=== PATIENT | male | born 1945 | race Caucasian/White ===

== ENCOUNTER 2016-09-03 11:12 | Day surgery (SDC) | payer MEDICARE ==
[~2016-09-03 11:12] MED LIST: CEFAZOLIN SODIUM 2 GRAM PREMIX 100 ML IV ONE; IV START KIT ONE; LACTATED RINGERS 1,000 ML ONE
[2016-09-03] MEDS ORDERED: BUPIVACAINE 0.5% W/EPI SDV 30 ML VIAL ONE (11:18)
[2016-09-03] MEDS ORDERED: CEFAZOLIN SODIUM 2 GRAM PREMIX 100 ML IV PRN (11:30)
[2016-09-03] MEDS ORDERED: CEFAZOLIN SODIUM 1,000 MG VIAL ONE (11:54)
[2016-09-03] MEDS ORDERED: SODIUM CHLORIDE 0.9% FLUSH 10 ML ONE ×2 (11:54→16:17)
[2016-09-03] MEDS ORDERED: FENTANYL 100 MCG/2 ML VIAL ONE (12:11)
[2016-09-03] MEDS ORDERED: PROPOFOL 20 ML IV ONE (12:41)
[2016-09-03] MEDS ORDERED: METOCLOPRAMIDE HCL 5 MG/ML 2ML VIAL ONE (12:41)
[2016-09-03] MEDS ORDERED: ATROPINE SULFATE 0.4 MG/1 ML VIAL IV PRN (12:48)
[2016-09-03] MEDS ORDERED: NALOXONE HCL 0.4 MG/ML VIAL IV PRN (12:48)
[2016-09-03] MEDS ORDERED: PROMETHAZINE HCL 25 MG/ML VIAL IM PRN (12:48)
[2016-09-03] MEDS ORDERED: ONDANSETRON 4 MG/2ML 2 ML VIAL IV PRN ×2 (12:48→14:24)
[2016-09-03] MEDS ORDERED: MEPERIDINE 25 MG/ML SYRINGE IV PRN (12:48)
[2016-09-03] MEDS ORDERED: HYDRALAZINE HCL 20 MG/1 ML VIAL IV PRN (12:48)
[2016-09-03] MEDS ORDERED: MORPHINE SULFATE 10 MG/ML SYRINGE ONE (12:58)
[2016-09-03] MEDS ORDERED: LACTATED RINGERS 1,000 ML IV SCH (13:00)
[2016-09-03] MEDS ORDERED: MORPHINE SULFATE 4 MG/ML SYRINGE ONE ×2 (13:53→14:03)
[2016-09-03] MEDS: MORPHINE SULFATE 4 MG/ML SYRINGE IV PRN ×4 (13:55→14:10)
[2016-09-03] MEDS ORDERED: KETOROLAC TROMETHAMINE 30 MG/ML 1 ML VIAL IV PRN (14:24)
[2016-09-03] MEDS ORDERED: MORPHINE SULFATE 2 MG/ML SYRINGE IV PRN (14:24)
[2016-09-03] MEDS ORDERED: OXYCODONE/ACETAMINOPHEN 5/325 MG TABLET PO PRN (14:24)
[2016-09-03] MEDS ORDERED: KETOROLAC TROMETHAMINE 30 MG/ML 1 ML VIAL ONE (14:54)
[2016-09-03] MEDS ORDERED: GLYCOPYRROLATE 0.2 MG/ML 1ML VIAL ONE (14:59)
[2016-09-03] MEDS ORDERED: OXYCODONE/ACETAMINOPHEN 5/325 MG TABLET ONE (16:15)
[2016-09-03] MEDS ORDERED: ONDANSETRON 4 MG/2ML 2 ML VIAL ONE (16:15)
--- NOTE | 2016-09-03 16:24 | OP ---
OBDULIA STRICKLAND [id number] DATE OF OPERATION: September 03, 2016 PREOPERATIVE DIAGNOSIS: Subcutaneous mass times two upper abdomen, umbilical hernia. POSTOPERATIVE DIAGNOSIS: Subcutaneous mass times two upper abdomen, umbilical hernia. PROCEDURE: 1. EXCISION OF SUBCUTANEOUS MASS TIMES TWO UPPER ABDOMEN 2. UMBILICAL HERNIA REPAIR WITH MEDIUM VENTRALEX MESH PATCH. SURGEON: Darryl Zhao M.D. METAL TRIMMER: Meliza Govea ANESTHESIA: LMA general anesthesia by Sarah Zelaya C.R.N.A. INDICATIONS: This is a 70-year-old male who presents for elective repair of an umbilical hernia. He also has two subcutaneous masses in the epigastric area that are tender. DESCRIPTION: With informed consent he was taken to the operating room where he was laid supine on the operating room table. General LMA anesthesia was administered. The abdomen was prepped and draped in the usual fashion. Local anesthetic was administered below the umbilicus. Incision was made. We dissected around a hernia sac. We it from the umbilical skin with Metzenbaum scissors. Hernia sac was excised at the level of the fascia using electrocautery. From within, I could not feel a fascial defect in the epigastric area. The subcutaneous masses were in the area of the falciform ligament but no clear defect was palpable. I decided actually to excise the subcutaneous masses in the epigastric area while I had the umbilical incision open. Local anesthetic was administered around the subcutaneous masses. A transverse incision was made. We dissected out two separate subcutaneous lipomatous type masses. The larger one was more cephalad and to the left and measured 6 cm in size. It was able to be dissected free mostly with blunt dissection. A more firm lesion lower on the right was excised with blunt dissection. It measured 2.5 cm. 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 No fascial defects were identified. The upper abdominal incision was closed in layers with deeper #3-0 Vicryl and then a running subcuticular #4-0 Monocryl. In the umbilical defect, I placed a medium Ventralex mesh patch. Care was taken to insure that there were no visceral structures between the mesh and the abdominal wall. This was secured circumferentially with #2-0 Vicryl. The tails were cut away. The wound was irrigated. We appeared to have adequate hemostasis. Umbilical skin was sutured down near the fascia with some #3-0 Vicryl. Subcutaneous tissues brought together with #3-0 Vicryl. The skin was closed with a running subcuticular #4-0 Monocryl. Mastisol and Steri-Strips were placed to both incisions. Sterile dressings were applied. An abdominal binder was applied. He tolerated the procedure and was taken to the recovery room in stable condition. A note was made that needle, instrument and lap counts were reported as correct at the time of closure. Cc: Derian De Oliveira M.D.
--- NOTE | 2016-09-06 14:10 | SURGPATH ---
[facility] [address] [place] [id number] Patient Name: OBDULIA STRICKLAND MR#: [id number] : 1945 Gender: M Specimen #: [id number] Collected: 09/03/2016 Received: 09/05/2016 Reported: 09/06/2016 Submitting Phys: BRIANNA WALLS Copy To Phys: [facility]AE [facility] Clinical History / Pre-Operative Diagnosis: ABDOMINAL MASSES, UMBILICAL HERNIA Specimen Source / Surgical Procedure Performed: UPPER ABDOMINAL MASSES (SUBCUTANEOUS) Interpretation: SOFT TISSUE, UPPER ABDOMINAL MASSES, EXCISION: - LIPOMAS Electronically Signed Out Ally Wills M.D. Gross Description: The specimen is received in a formalin filled container labeled with the patient's name and "upper abdominal masses". Four lobular, partially encapsulated biopsies of yellow-blair, fibrofatty tissue are 1.0 x 0.7 x 0.6 cm to 4.8 x 3.5 x 3 cm. Sectioning reveals homogeneous yellow adipose tissue throughout. Summary of sections: A-single section from the three smaller biopsies B and C-two sections from the largest biopsy Marlin Villagomez Microscopic Description: Sections show a lobular mature adipose tissue without cytologic atypia. 1: 35546 D17.1
== END 2016-09-03 16:55 | disposition home or self-care (01) ==
LOC: SDC 11:12
PROVIDERS: ATTEND Surgery
PROC: 0WUF0JZ Supplement Abdominal Wall with Synthetic Substitute, Open Approach (ICD-10-PCS; principal; 2016-09-03)
PROC: 0HB7XZX Excision of Abdomen Skin, External Approach, Diagnostic (ICD-10-PCS; 2016-09-03)
PROC: 0HB7XZX Excision of Abdomen Skin, External Approach, Diagnostic (ICD-10-PCS; 2016-09-03)
DX: D17.1 Benign lipomatous neoplasm of skin and subcutaneous tissue of trunk (principal); K42.9 Umbilical hernia without obstruction or gangrene; I10 Essential (primary) hypertension
CPT/HCPCS: 11406; 11403; 49585; J0690 ×2; J3010; J2270 ×3; A9270; J2765; J1885; J2405 ×2; J7120